=== PATIENT | male | born 1950 | race Caucasian/White ===

== ENCOUNTER 2016-09-21 02:36 | Inpatient (IN) | payer MEDICARE, MEDICAID ==
[~2016-09-21] VITALS: Ht 165.1 cm; Wt 87.0 kg
[~2016-09-21 02:36] MED LIST: ALBU18HF INH; ALPR-475 PO; BUDE10.2 INH; BUPR150T6 PO; HYDR12.53 PO; PROP20TA PO; TAMS-11 PO; TIOT18CA INH; TRAM50TA2 PO
[2016-09-21] MEDS ORDERED: PROPOFOL 100 ML IV PRN ×3 (02:50→11:00)
[2016-09-21] MEDS ORDERED: methylPREDNISolone SOD SUCC 125 MG/2 ML ONE (02:56)
[2016-09-21] MEDS ORDERED: ROCURONIUM 10 MG/ML ONE (02:59)
[2016-09-21] MEDS ORDERED: CODE BLUE RESPONSE XX ONE (02:59)
[2016-09-21] MEDS ORDERED: ETOMIDATE 20 MG/10 ML ONE (02:59)
[2016-09-21] MEDS: MAGNESIUM SULFATE PMX 2GM/50ML 50 ML IV ONE (03:00)
[2016-09-21] MEDS ORDERED: ALBUTEROL 0.5%, 20ML NPPBCONT ONE (03:00)
[2016-09-21] MEDS ORDERED: ETOMIDATE 20 MG/10 ML IV ONE (03:00)
[2016-09-21] MEDS ORDERED: ROCURONIUM 10 MG/ML IVPush ONE (03:00)
[2016-09-21] MEDS ORDERED: FENTANYL PF 100 MCG/2ML IV ONE (03:00)
[2016-09-21] MEDS ORDERED: methylPREDNISolone SOD SUCC 125 MG/2 ML IVP ONE (03:00)
[2016-09-21] MEDS ORDERED: SODIUM CHLORIDE 0.9% ONE (03:06)
[2016-09-21] MEDS ORDERED: MAGNESIUM SULFATE 1 GM/2 ML ONE (03:06)
[2016-09-21 03:19] LABS: ASPARTATE AMINO TRANSFERASE 32 U/L (15-37); BLOOD UREA NITROGEN 13 mg/dL (7-18)
[2016-09-21 03:20] LABS: ABG COLLECTION SITE RIGHT RADIAL; COLLATERAL CIRCULATION TESTING NORMAL
[2016-09-21 03:24] LABS: IS PT STATUS REG ER OR PRE ER? YES
[2016-09-21] MEDS ORDERED: PIPERACILLIN/TAZO/PMX 3.375GM 50 ML IVPB ONE (03:30)
[2016-09-21] MEDS ORDERED: VANCOMYCIN 1,600 MG in SODIUM CHLORIDE 0.9% 250 ML IV ONE (03:30)
[2016-09-21] MEDS ORDERED: VANCOMYCIN PER PHARMACY IV ONE (03:30)
[2016-09-21 03:32] LABS: DIFF TOTAL CELLS COUNTED 100 CELL DIFF
[2016-09-21] MEDS ORDERED: FENTANYL PF 250 MCG in SODIUM CHLORIDE 0.9% 250 ML IV PRN (04:00)
[2016-09-21] MEDS ORDERED: VANCOMYCIN PER PHARMACY MC PRN (04:00)
[2016-09-21] MEDS: PIPERACILLIN/TAZO/PMX 3.375GM 50 ML IV SCH ×4 (04:00→22:01)
[2016-09-21] MEDS ORDERED: ONDANSETRON 2MG/ML, 2ML IVP PRN (04:00)
[2016-09-21] MEDS: methylPREDNISolone SOD SUCC 125 MG/2 ML IVPush SCH ×4 (04:00→22:01)
[2016-09-21 04:10] LABS: VERIFY COUNTS? YES
[2016-09-21] MEDS ORDERED: FENTANYL PF 100 MCG/2ML ONE (04:13)
[2016-09-21] MEDS: SODIUM CHLORIDE 0.9% 1,000 ML IV SCH ×2 (04:25→16:33)
[2016-09-21] MEDS ORDERED: ASPI-496 PO (04:25)
[2016-09-21] MEDS ORDERED: AMLO10TA2 PO (04:25)
[2016-09-21] MEDS ORDERED: PROP20TA PO (04:25)
[2016-09-21] MEDS ORDERED: AMOX875T PO (04:25)
[2016-09-21] MEDS ORDERED: ATOR20TA9 PO (04:25)
[2016-09-21] MEDS ORDERED: CARV3.122 PO (04:25)
[2016-09-21] MEDS ORDERED: MIDAZOLAM 1 MG/ML, 2ML IVPush ONE (04:30)
[2016-09-21 04:37] LABS: ABG COLLECTION SITE RIGHT RADIAL; COLLATERAL CIRCULATION TESTING NORMAL
[2016-09-21] MEDS ORDERED: PIPERACILLIN/TAZO/PMX 3.375GM 50 ML ONE (04:49)
[2016-09-21 04:57] LABS: IS PT STATUS REG ER OR PRE ER? YES
[2016-09-21 05:02] LABS: DAU SCREEN DISCLAIMER
[2016-09-21] MEDS: [UNRECOGNIZED DRUG - OTHER] MC SCH ×4 (07:00→09:52)
[2016-09-21 07:11] LABS: ABG COLLECTION SITE RIGHT RADIAL; COLLATERAL CIRCULATION TESTING NORMAL
[2016-09-21] MEDS ORDERED: PLEASE ENTER HEIGHT AND WEIGHT MC SCH (08:30)
[2016-09-21] MEDS ORDERED: PROPOFOL 100 ML IV ONE (09:58)
[2016-09-21] MEDS ORDERED: VANCOMYCIN 1,400 MG in SODIUM CHLORIDE 0.9% 250 ML IV SCH (10:00)
[2016-09-21] MEDS ORDERED: PHARMACOKINETIC MONITORING MC PRN (10:00)
[2016-09-21] MEDS ORDERED: EPINEPHRINE 1 MG/ML, 1ML ONE (10:02)
[2016-09-21] MEDS ORDERED: PROPOFOL 10 MG/ML, 20ML ONE (10:02)
[2016-09-21] MEDS: FAMOTIDINE 20 MG/2 ML IV SCH ×2 (10:04→21:24)
[2016-09-21] MEDS: ENOXAPARIN 40 MG/0.4 ML SQ SCH (10:04)
[2016-09-21 10:57] LABS: IS PT STATUS REG ER OR PRE ER? NO
[2016-09-21] MEDS: ALBUTEROL/IPRATROPIUM 2.5MG/0.5MG, 3 ML INLINE SCH ×4 (11:15→23:40)
[2016-09-21] MEDS ORDERED: DEXTROSE 50%, 50ML SYRINGE IVPush PRN (14:00)
[2016-09-21] MEDS ORDERED: SENNA/DOCUSATE TABLET NG PRN (14:00)
[2016-09-21] MEDS ORDERED: DEXTROSE 4 GM TAB.CHEW PO PRN (14:00)
[2016-09-21] MEDS ORDERED: LIDOCAINE-MPF 1%, 2ML ENDO PRN (14:00)
[2016-09-21] MEDS ORDERED: SENNOSIDES 8.8 MG/5 ML ORAL SOL NG PRN (14:00)
[2016-09-21] MEDS ORDERED: ALBUTEROL/IPRATROPIUM 2.5MG/0.5MG, 3 ML INLINE SCH (14:00)
[2016-09-21] MEDS ORDERED: GLUCAGON 1 MG IM PRN (14:00)
[2016-09-21] MEDS ORDERED: BISACODYL 10 MG SUPP PR PRN (14:00)
[2016-09-21] MEDS ORDERED: FENTANYL PF 100 MCG/2ML IVPush PRN (14:00)
[2016-09-21] MEDS: PROPOFOL 100 ML IV PRN ×2 (15:44→21:30)
[2016-09-21] MEDS: INSULIN ASPART 100 UNITS/ML, PEN SQ-INSULIN SCH ×2 (16:00→21:00)
[2016-09-21 16:30] LABS: IS PT STATUS REG ER OR PRE ER? NO
[2016-09-21] MEDS: SODIUM CHLORIDE FLUSH 10ML SYR IVF SCH (21:24)
[2016-09-22] MEDS ORDERED: OMNIPAQUE 350 MG/ML, 100ML BOTTLE ONE (01:17)
[2016-09-22] MEDS: PROPOFOL 100 ML IV PRN (01:24)
[2016-09-22] MEDS: ALBUTEROL/IPRATROPIUM 2.5MG/0.5MG, 3 ML INLINE SCH ×2 (02:24→06:30)
[2016-09-22 04:00] VITALS: BP 119/58
[2016-09-22] MEDS: PIPERACILLIN/TAZO/PMX 3.375GM 50 ML IV SCH ×4 (04:00→22:41)
[2016-09-22] MEDS: methylPREDNISolone SOD SUCC 125 MG/2 ML IVPush SCH ×4 (04:00→22:41)
[2016-09-22 04:25] LABS: HEMOGLOBIN 11.2 g/dL (13.7-18.0)
[2016-09-22 04:32] LABS: ABG COLLECTION SITE LEFT RADIAL; COLLATERAL CIRCULATION TESTING NORMAL
[2016-09-22 04:37] LABS: BLOOD UREA NITROGEN 20 mg/dL (7-18)
[2016-09-22 04:40] LABS: ASPARTATE AMINO TRANSFERASE 32 U/L (15-37)
[2016-09-22] MEDS: VANCOMYCIN 1,400 MG in SODIUM CHLORIDE 0.9% 250 ML IV SCH (04:41)
[2016-09-22] MEDS: SODIUM CHLORIDE 0.9% 1,000 ML IV SCH ×2 (04:58→20:49)
[2016-09-22] MEDS: INSULIN ASPART 100 UNITS/ML, PEN SQ-INSULIN SCH ×4 (07:00→20:43)
[2016-09-22] MEDS: ENOXAPARIN 40 MG/0.4 ML SQ SCH (09:51)
[2016-09-22] MEDS: FAMOTIDINE 20 MG/2 ML IV SCH ×2 (09:51→20:49)
[2016-09-22] MEDS: SODIUM CHLORIDE FLUSH 10ML SYR IVF SCH ×2 (09:51→20:43)
[2016-09-22] MEDS: ALBUTEROL/IPRATROPIUM 2.5MG/0.5MG, 3 ML NPPB SCH ×4 (11:00→23:00)
[2016-09-22] MEDS: CARVEDILOL 3.125 MG TABLET PO SCH (17:19)
[2016-09-23] MEDS ORDERED: ALBUTEROL SULFATE 2.5 MG/3 ML ONE (02:46)
[2016-09-23] MEDS ORDERED: IPRATROPIUM 0.5 MG/2.5 ML INHA ONE (02:47)
[2016-09-23] MEDS: ALBUTEROL/IPRATROPIUM 2.5MG/0.5MG, 3 ML NPPB SCH ×6 (03:10→23:06)
[2016-09-23] MEDS: methylPREDNISolone SOD SUCC 125 MG/2 ML IVPush SCH ×4 (04:11→22:50)
[2016-09-23] MEDS: PIPERACILLIN/TAZO/PMX 3.375GM 50 ML IV SCH ×4 (04:11→22:50)
[2016-09-23 04:38] VITALS: BP 122/67
[2016-09-23 04:46] LABS: ABG COLLECTION SITE NOT DOCUMENTED
[2016-09-23 04:47] LABS: HEMOGLOBIN 11.5 g/dL (13.7-18.0)
[2016-09-23] MEDS: VANCOMYCIN 1,400 MG in SODIUM CHLORIDE 0.9% 250 ML IV SCH (04:53)
[2016-09-23 04:55] LABS: BLOOD UREA NITROGEN 26 mg/dL (7-18)
[2016-09-23] MEDS: CARVEDILOL 3.125 MG TABLET PO SCH (06:04)
[2016-09-23] MEDS: INSULIN ASPART 100 UNITS/ML, PEN SQ-INSULIN SCH ×4 (07:00→20:55)
[2016-09-23] MEDS: FAMOTIDINE 20 MG/2 ML IV SCH ×2 (08:46→20:57)
[2016-09-23] MEDS: SODIUM CHLORIDE FLUSH 10ML SYR IVF SCH ×2 (08:46→20:57)
[2016-09-23] MEDS: ENOXAPARIN 40 MG/0.4 ML SQ SCH (08:47)
[2016-09-23] MEDS: FLUTICASONE/VILANTEROL 200-25MCG/INH INH SCH (10:41)
[2016-09-23] MEDS: TAMSULOSIN 0.4 MG CAP.ER.24H PO SCH (10:41)
[2016-09-23] MEDS ORDERED: CARVEDILOL 3.125 MG TABLET PO ONE (11:00)
[2016-09-23] MEDS ORDERED: REGADENOSON 0.4 MG/5 ML SYRINGE ONE (11:12)
[2016-09-23] MEDS: OXYcodone/APAP 7.5/325MG TABLET PO PRN ×2 (17:02→22:50)
[2016-09-23 17:03] VITALS: BP 159/64
[2016-09-23] MEDS: CARVEDILOL 6.25 MG TABLET PO SCH (17:03)
[2016-09-23 18:18] VITALS: BP 164/79
[2016-09-23 19:09] VITALS: BP 156/78
[2016-09-24 01:45] VITALS: BP 150/77
[2016-09-24] MEDS: OXYcodone/APAP 7.5/325MG TABLET PO PRN ×5 (03:07→22:40)
[2016-09-24] MEDS: ALBUTEROL/IPRATROPIUM 2.5MG/0.5MG, 3 ML NPPB SCH ×6 (03:14→22:56)
[2016-09-24 03:45] LABS: HEMOGLOBIN 11.6 g/dL (13.7-18.0)
[2016-09-24 03:49] LABS: ASPARTATE AMINO TRANSFERASE 97 U/L (15-37); BLOOD UREA NITROGEN 34 mg/dL (7-18)
[2016-09-24] MEDS: VANCOMYCIN 1,400 MG in SODIUM CHLORIDE 0.9% 250 ML IV SCH (04:05)
[2016-09-24] MEDS: methylPREDNISolone SOD SUCC 125 MG/2 ML IVPush SCH ×2 (05:46→12:27)
[2016-09-24] MEDS: CARVEDILOL 6.25 MG TABLET PO SCH ×2 (05:46→17:31)
[2016-09-24] MEDS: PIPERACILLIN/TAZO/PMX 3.375GM 50 ML IV SCH ×3 (05:47→18:42)
[2016-09-24] MEDS: INSULIN ASPART 100 UNITS/ML, PEN SQ-INSULIN SCH ×2 (07:00→11:00)
[2016-09-24] MEDS ORDERED: REGADENOSON 0.4 MG/5 ML SYRINGE ONE (08:06)
[2016-09-24] MEDS: FLUTICASONE/VILANTEROL 200-25MCG/INH INH SCH (08:21)
[2016-09-24] MEDS: FAMOTIDINE 20 MG/2 ML IV SCH ×2 (08:22→19:57)
[2016-09-24] MEDS: TAMSULOSIN 0.4 MG CAP.ER.24H PO SCH (08:22)
[2016-09-24] MEDS: SODIUM CHLORIDE FLUSH 10ML SYR IVF SCH ×2 (08:22→19:57)
[2016-09-24 08:24] VITALS: BP 167/80
[2016-09-24] MEDS: ENOXAPARIN 40 MG/0.4 ML SQ SCH (08:24)
[2016-09-24 13:57] VITALS: BP 158/79
[2016-09-24 17:32] VITALS: BP 140/79
[2016-09-24 19:19] VITALS: BP 172/82
[2016-09-24 21:00] VITALS: BP 166/83
[2016-09-24] MEDS ORDERED: LISINOPRIL 20 MG TABLET PO ONE (21:30)
[2016-09-24] MEDS ORDERED: VANCOMYCIN 1,700 MG in SODIUM CHLORIDE 0.9% 250 ML IV SCH (22:00)
[2016-09-25] VITALS (8 sets, daily range): BP systolic 159–191; BP diastolic 76–98
[2016-09-25] MEDS: PIPERACILLIN/TAZO/PMX 3.375GM 50 ML IV SCH ×3 (00:12→11:23)
[2016-09-25] MEDS: OXYcodone/APAP 7.5/325MG TABLET PO PRN ×4 (02:53→18:20)
[2016-09-25] MEDS: CARVEDILOL 6.25 MG TABLET PO SCH ×2 (05:46→16:20)
[2016-09-25 05:49] LABS: HEMOGLOBIN 11.8 g/dL (13.7-18.0)
[2016-09-25 06:11] LABS: BLOOD UREA NITROGEN 30 mg/dL (7-18)
[2016-09-25] MEDS: ALBUTEROL/IPRATROPIUM 2.5MG/0.5MG, 3 ML NPPB SCH ×5 (06:48→22:35)
[2016-09-25] MEDS: ENOXAPARIN 40 MG/0.4 ML SQ SCH (08:42)
[2016-09-25] MEDS: FAMOTIDINE 20 MG/2 ML IV SCH ×2 (08:42→19:57)
[2016-09-25] MEDS: TAMSULOSIN 0.4 MG CAP.ER.24H PO SCH (08:43)
[2016-09-25] MEDS: SODIUM CHLORIDE FLUSH 10ML SYR IVF SCH ×2 (08:44→19:57)
[2016-09-25] MEDS: FLUTICASONE/VILANTEROL 200-25MCG/INH INH SCH (08:44)
[2016-09-25] MEDS ORDERED: LISINOPRIL 20 MG TABLET PO SCH (12:00)
[2016-09-25] MEDS ORDERED: LISINOPRIL 20 MG TABLET PO ONE (18:30)
[2016-09-26] VITALS (7 sets, daily range): BP systolic 137–188; BP diastolic 68–97
[2016-09-26] MEDS: OXYcodone/APAP 7.5/325MG TABLET PO PRN ×4 (01:00→20:11)
[2016-09-26] MEDS: ALBUTEROL/IPRATROPIUM 2.5MG/0.5MG, 3 ML NPPB SCH ×5 (02:41→20:00)
[2016-09-26 05:23] LABS: HEMOGLOBIN 12.4 g/dL (13.7-18.0)
[2016-09-26 05:32] LABS: BLOOD UREA NITROGEN 22 mg/dL (7-18)
[2016-09-26] MEDS: CARVEDILOL 6.25 MG TABLET PO SCH ×2 (05:54→17:05)
[2016-09-26 07:41] LABS: IS PT STATUS REG ER OR PRE ER? NO
[2016-09-26] MEDS: FLUTICASONE/VILANTEROL 200-25MCG/INH INH SCH (09:18)
[2016-09-26] MEDS: LISINOPRIL 20 MG TABLET PO SCH (09:21)
[2016-09-26] MEDS: SODIUM CHLORIDE FLUSH 10ML SYR IVF SCH ×2 (09:21→19:59)
[2016-09-26] MEDS: ENOXAPARIN 40 MG/0.4 ML SQ SCH (09:21)
[2016-09-26] MEDS: FAMOTIDINE 20 MG/2 ML IV SCH ×2 (09:21→19:59)
[2016-09-26] MEDS: TAMSULOSIN 0.4 MG CAP.ER.24H PO SCH (09:21)
[2016-09-26 14:54] LABS: IS PT STATUS REG ER OR PRE ER? NO
[2016-09-26] MEDS: ENALAPRILAT 1.25 MG/ML, 2ML IV PRN (15:43)
[2016-09-27] VITALS (7 sets, daily range): BP systolic 110–179; BP diastolic 68–85
[2016-09-27] MEDS: ALBUTEROL/IPRATROPIUM 2.5MG/0.5MG, 3 ML NPPB PRN ×2 (00:57→05:00)
[2016-09-27] MEDS: OXYcodone/APAP 7.5/325MG TABLET PO PRN ×4 (02:05→23:01)
[2016-09-27] MEDS: CARVEDILOL 6.25 MG TABLET PO SCH ×2 (05:46→17:53)
[2016-09-27 06:01] LABS: HEMOGLOBIN 12.3 g/dL (13.7-18.0)
[2016-09-27 06:03] LABS: ABG COLLECTION SITE RIGHT RADIAL; COLLATERAL CIRCULATION TESTING NORMAL
[2016-09-27 06:10] LABS: BLOOD UREA NITROGEN 16 mg/dL (7-18)
[2016-09-27] MEDS: ALBUTEROL/IPRATROPIUM 2.5MG/0.5MG, 3 ML NPPB SCH ×5 (07:26→23:59)
[2016-09-27] MEDS: LISINOPRIL 20 MG TABLET PO SCH (08:29)
[2016-09-27] MEDS: TAMSULOSIN 0.4 MG CAP.ER.24H PO SCH (08:29)
[2016-09-27] MEDS: FLUTICASONE/VILANTEROL 200-25MCG/INH INH SCH (08:29)
[2016-09-27] MEDS: ENOXAPARIN 40 MG/0.4 ML SQ SCH (08:30)
[2016-09-27] MEDS: FAMOTIDINE 20 MG/2 ML IV SCH ×2 (08:30→19:47)
[2016-09-27] MEDS: SODIUM CHLORIDE FLUSH 10ML SYR IVF SCH ×2 (08:33→21:00)
[2016-09-27] MEDS: ENALAPRILAT 1.25 MG/ML, 2ML IV PRN (12:43)
[2016-09-28 01:12] VITALS: BP 143/80
[2016-09-28 05:37] VITALS: BP 145/76
[2016-09-28] MEDS: CARVEDILOL 6.25 MG TABLET PO SCH ×2 (06:16→18:20)
[2016-09-28 06:21] LABS: HEMOGLOBIN 12.5 g/dL (13.7-18.0)
[2016-09-28] MEDS: OXYcodone/APAP 7.5/325MG TABLET PO PRN ×4 (06:22→23:16)
[2016-09-28 06:38] LABS: BLOOD UREA NITROGEN 20 mg/dL (7-18)
[2016-09-28] MEDS: ALBUTEROL/IPRATROPIUM 2.5MG/0.5MG, 3 ML NPPB SCH ×5 (07:25→23:05)
[2016-09-28 07:45] VITALS: BP 145/74
[2016-09-28] MEDS: ENOXAPARIN 40 MG/0.4 ML SQ SCH (09:36)
[2016-09-28] MEDS: LISINOPRIL 20 MG TABLET PO SCH (09:37)
[2016-09-28] MEDS: TAMSULOSIN 0.4 MG CAP.ER.24H PO SCH (09:37)
[2016-09-28] MEDS: FAMOTIDINE 20 MG/2 ML IV SCH ×2 (09:37→20:07)
[2016-09-28] MEDS: FLUTICASONE/VILANTEROL 200-25MCG/INH INH SCH (09:37)
[2016-09-28] MEDS: SODIUM CHLORIDE FLUSH 10ML SYR IVF SCH ×2 (09:38→20:07)
[2016-09-28 13:47] VITALS: BP 149/72
[2016-09-28 18:33] VITALS: BP 157/75
[2016-09-29 00:46] VITALS: BP 133/75
[2016-09-29 05:51] LABS: BLOOD UREA NITROGEN 16 mg/dL (7-18)
[2016-09-29 05:55] LABS: HEMOGLOBIN 12.3 g/dL (13.7-18.0)
[2016-09-29 06:23] VITALS: BP 152/81
[2016-09-29] MEDS: CARVEDILOL 6.25 MG TABLET PO SCH ×2 (06:24→17:16)
[2016-09-29] MEDS: ALBUTEROL/IPRATROPIUM 2.5MG/0.5MG, 3 ML NPPB SCH ×5 (07:00→23:45)
[2016-09-29 07:16] VITALS: BP 129/67
[2016-09-29] MEDS: OXYcodone/APAP 7.5/325MG TABLET PO PRN ×3 (08:21→21:13)
[2016-09-29] MEDS: ENOXAPARIN 40 MG/0.4 ML SQ SCH (08:21)
[2016-09-29] MEDS: FAMOTIDINE 20 MG/2 ML IV SCH ×2 (08:21→21:13)
[2016-09-29] MEDS: TAMSULOSIN 0.4 MG CAP.ER.24H PO SCH (08:21)
[2016-09-29] MEDS: FLUTICASONE/VILANTEROL 200-25MCG/INH INH SCH (08:21)
[2016-09-29] MEDS: LISINOPRIL 20 MG TABLET PO SCH (08:21)
[2016-09-29] MEDS: SODIUM CHLORIDE FLUSH 10ML SYR IVF SCH ×2 (08:22→21:13)
[2016-09-29 14:07] VITALS: BP 138/78
[2016-09-29 20:55] VITALS: BP 148/81
[2016-09-30] MEDS: OXYcodone/APAP 7.5/325MG TABLET PO PRN ×5 (01:17→22:26)
[2016-09-30 01:21] VITALS: BP 143/81
[2016-09-30 05:06] VITALS: BP 155/79
[2016-09-30] MEDS: CARVEDILOL 6.25 MG TABLET PO SCH ×2 (05:07→17:18)
[2016-09-30] MEDS: ALBUTEROL/IPRATROPIUM 2.5MG/0.5MG, 3 ML NPPB SCH ×4 (06:40→18:31)
[2016-09-30 06:45] LABS: BLOOD UREA NITROGEN 15 mg/dL (7-18)
[2016-09-30] MEDS: LISINOPRIL 20 MG TABLET PO SCH (07:37)
[2016-09-30] MEDS: TAMSULOSIN 0.4 MG CAP.ER.24H PO SCH (07:38)
[2016-09-30] MEDS: FAMOTIDINE 20 MG/2 ML IV SCH ×2 (07:38→22:27)
[2016-09-30] MEDS: ENOXAPARIN 40 MG/0.4 ML SQ SCH (07:38)
[2016-09-30] MEDS: FLUTICASONE/VILANTEROL 200-25MCG/INH INH SCH (07:38)
[2016-09-30] MEDS: SODIUM CHLORIDE FLUSH 10ML SYR IVF SCH ×2 (07:39→22:26)
[2016-09-30 07:51] LABS: HEMOGLOBIN 13.1 g/dL (13.7-18.0)
[2016-09-30 08:10] VITALS: BP 154/72
[2016-09-30] MEDS: NYSTATIN 500,000 UNITS/5 ML UDC PO SCH ×2 (15:13→22:26)
[2016-09-30 16:22] VITALS: BP 148/83
[2016-09-30 21:10] VITALS: BP 144/84
[2016-09-30] MEDS: ALBUTEROL/IPRATROPIUM 2.5MG/0.5MG, 3 ML NPPB PRN (22:42)
[2016-10-01] MEDS: ALBUTEROL/IPRATROPIUM 2.5MG/0.5MG, 3 ML NPPB PRN (03:25)
[2016-10-01 03:50] VITALS: BP 133/77
[2016-10-01] MEDS: OXYcodone/APAP 7.5/325MG TABLET PO PRN ×4 (04:39→21:05)
[2016-10-01] MEDS: CARVEDILOL 6.25 MG TABLET PO SCH ×2 (05:40→17:40)
[2016-10-01] MEDS: NYSTATIN 500,000 UNITS/5 ML UDC PO SCH ×4 (05:40→20:13)
[2016-10-01 06:36] LABS: HEMOGLOBIN 12.7 g/dL (13.7-18.0)
[2016-10-01 06:40] VITALS: BP 119/75
[2016-10-01 06:41] LABS: BLOOD UREA NITROGEN 22 mg/dL (7-18)
[2016-10-01] MEDS: ALBUTEROL/IPRATROPIUM 2.5MG/0.5MG, 3 ML NPPB SCH ×4 (07:00→19:51)
[2016-10-01] MEDS: SODIUM CHLORIDE FLUSH 10ML SYR IVF SCH ×2 (07:00→20:13)
[2016-10-01] MEDS: FLUTICASONE/VILANTEROL 200-25MCG/INH INH SCH (09:13)
[2016-10-01] MEDS: TAMSULOSIN 0.4 MG CAP.ER.24H PO SCH (09:14)
[2016-10-01] MEDS: ENOXAPARIN 40 MG/0.4 ML SQ SCH (09:15)
[2016-10-01] MEDS: LISINOPRIL 20 MG TABLET PO SCH (09:15)
[2016-10-01] MEDS: FAMOTIDINE 20 MG/2 ML IV SCH ×2 (09:15→20:13)
[2016-10-01 14:14] VITALS: BP 144/81
[2016-10-01] MEDS: LACTULOSE 20 GM/30 ML UDC NG PRN (17:41)
[2016-10-01 18:43] VITALS: BP 119/75
[2016-10-02] MEDS: ALBUTEROL/IPRATROPIUM 2.5MG/0.5MG, 3 ML NPPB SCH ×5 (00:06→19:11)
[2016-10-02] MEDS: OXYcodone/APAP 7.5/325MG TABLET PO PRN ×5 (01:21→20:18)
[2016-10-02 01:58] VITALS: BP 165/80
[2016-10-02] MEDS: CARVEDILOL 6.25 MG TABLET PO SCH ×2 (05:14→18:26)
[2016-10-02] MEDS: NYSTATIN 500,000 UNITS/5 ML UDC PO SCH ×4 (05:54→20:18)
[2016-10-02 06:42] LABS: BLOOD UREA NITROGEN 25 mg/dL (7-18)
[2016-10-02 07:10] VITALS: BP 154/80
[2016-10-02] MEDS: LISINOPRIL 20 MG TABLET PO SCH (08:35)
[2016-10-02] MEDS: TAMSULOSIN 0.4 MG CAP.ER.24H PO SCH (08:35)
[2016-10-02] MEDS: ENOXAPARIN 40 MG/0.4 ML SQ SCH (08:36)
[2016-10-02] MEDS: FAMOTIDINE 20 MG/2 ML IV SCH ×2 (08:36→20:18)
[2016-10-02] MEDS: FLUTICASONE/VILANTEROL 200-25MCG/INH INH SCH (08:36)
[2016-10-02] MEDS: SODIUM CHLORIDE FLUSH 10ML SYR IVF SCH ×2 (08:36→20:18)
[2016-10-02 13:15] VITALS: BP 155/82
[2016-10-02 18:55] VITALS: BP 145/80
[2016-10-02] MEDS: ALBUTEROL/IPRATROPIUM 2.5MG/0.5MG, 3 ML NPPB PRN (23:18)
[2016-10-03] MEDS: OXYcodone/APAP 7.5/325MG TABLET PO PRN ×4 (01:52→20:25)
[2016-10-03 01:54] VITALS: BP 147/74
[2016-10-03 05:41] LABS: HEMOGLOBIN 13.4 g/dL (13.7-18.0)
[2016-10-03] MEDS: CARVEDILOL 6.25 MG TABLET PO SCH ×2 (05:45→16:16)
[2016-10-03] MEDS: NYSTATIN 500,000 UNITS/5 ML UDC PO SCH ×4 (05:45→20:25)
[2016-10-03 05:50] LABS: BLOOD UREA NITROGEN 22 mg/dL (7-18)
[2016-10-03 06:27] VITALS: BP 159/80
[2016-10-03] MEDS: ALBUTEROL/IPRATROPIUM 2.5MG/0.5MG, 3 ML NPPB SCH ×3 (07:10→22:18)
[2016-10-03] MEDS: ENOXAPARIN 40 MG/0.4 ML SQ SCH (09:15)
[2016-10-03] MEDS: FLUTICASONE/VILANTEROL 200-25MCG/INH INH SCH (09:15)
[2016-10-03] MEDS: SODIUM CHLORIDE FLUSH 10ML SYR IVF SCH ×2 (09:15→20:26)
[2016-10-03] MEDS: TAMSULOSIN 0.4 MG CAP.ER.24H PO SCH (09:16)
[2016-10-03] MEDS: FAMOTIDINE 20 MG/2 ML IV SCH (09:16)
[2016-10-03] MEDS: LISINOPRIL 20 MG TABLET PO SCH (09:16)
[2016-10-03] MEDS: LACTULOSE 20 GM/30 ML UDC NG PRN (09:17)
[2016-10-03 13:36] VITALS: BP 113/61
[2016-10-03 16:14] VITALS: BP 135/65
[2016-10-03 19:20] VITALS: BP 151/74
[2016-10-03] MEDS: FAMOTIDINE 20 MG TABLET PO SCH (20:25)
[2016-10-04 01:13] VITALS: BP 136/85
[2016-10-04 01:50] VITALS: BP 137/83
[2016-10-04] MEDS: OXYcodone/APAP 7.5/325MG TABLET PO PRN ×4 (02:12→22:02)
[2016-10-04] MEDS: NYSTATIN 500,000 UNITS/5 ML UDC PO SCH ×4 (06:02→20:05)
[2016-10-04] MEDS: CARVEDILOL 6.25 MG TABLET PO SCH ×2 (06:02→17:13)
[2016-10-04 06:10] LABS: HEMOGLOBIN 14.1 g/dL (13.7-18.0)
[2016-10-04 06:19] LABS: BLOOD UREA NITROGEN 32 mg/dL (7-18)
[2016-10-04 06:36] VITALS: BP 145/82
[2016-10-04] MEDS: ALBUTEROL/IPRATROPIUM 2.5MG/0.5MG, 3 ML NPPB SCH ×4 (07:00→19:48)
[2016-10-04] MEDS: FLUTICASONE/VILANTEROL 200-25MCG/INH INH SCH (10:16)
[2016-10-04] MEDS: ENOXAPARIN 40 MG/0.4 ML SQ SCH (10:16)
[2016-10-04] MEDS: TAMSULOSIN 0.4 MG CAP.ER.24H PO SCH (10:16)
[2016-10-04] MEDS: LISINOPRIL 20 MG TABLET PO SCH (10:16)
[2016-10-04] MEDS: FAMOTIDINE 20 MG TABLET PO SCH ×2 (10:16→20:05)
[2016-10-04] MEDS: SODIUM CHLORIDE FLUSH 10ML SYR IVF SCH ×2 (10:17→20:05)
[2016-10-04 13:07] VITALS: BP 94/62
[2016-10-04 20:45] VITALS: BP 146/74
[2016-10-05 01:50] VITALS: BP 137/83
[2016-10-05] MEDS: OXYcodone/APAP 7.5/325MG TABLET PO PRN ×4 (02:11→22:13)
[2016-10-05] MEDS: NYSTATIN 500,000 UNITS/5 ML UDC PO SCH ×5 (06:05→19:58)
[2016-10-05] MEDS: CARVEDILOL 6.25 MG TABLET PO SCH ×2 (06:06→18:05)
[2016-10-05 06:07] LABS: BLOOD UREA NITROGEN 31 mg/dL (7-18)
[2016-10-05 06:40] VITALS: BP 131/99
[2016-10-05] MEDS: ALBUTEROL/IPRATROPIUM 2.5MG/0.5MG, 3 ML NPPB SCH ×4 (08:00→20:00)
[2016-10-05] MEDS: FAMOTIDINE 20 MG TABLET PO SCH ×2 (08:36→19:56)
[2016-10-05] MEDS: FLUTICASONE/VILANTEROL 200-25MCG/INH INH SCH (08:36)
[2016-10-05] MEDS: TAMSULOSIN 0.4 MG CAP.ER.24H PO SCH (08:37)
[2016-10-05] MEDS: LISINOPRIL 20 MG TABLET PO SCH (08:37)
[2016-10-05] MEDS: ENOXAPARIN 40 MG/0.4 ML SQ SCH (08:37)
[2016-10-05] MEDS: SODIUM CHLORIDE FLUSH 10ML SYR IVF SCH ×2 (08:39→19:56)
[2016-10-05 14:04] VITALS: BP 117/74
[2016-10-05 20:55] VITALS: BP 102/65
[2016-10-06 03:00] VITALS: BP 139/62
[2016-10-06] MEDS: CARVEDILOL 6.25 MG TABLET PO SCH ×2 (05:14→18:27)
[2016-10-06] MEDS: NYSTATIN 500,000 UNITS/5 ML UDC PO SCH ×3 (05:14→16:00)
[2016-10-06] MEDS: OXYcodone/APAP 7.5/325MG TABLET PO PRN ×3 (05:15→18:25)
[2016-10-06 05:42] LABS: BLOOD UREA NITROGEN 30 mg/dL (7-18)
[2016-10-06] MEDS: ALBUTEROL/IPRATROPIUM 2.5MG/0.5MG, 3 ML NPPB SCH ×4 (07:00→20:30)
[2016-10-06 07:19] VITALS: BP 126/70
[2016-10-06] MEDS: FLUTICASONE/VILANTEROL 200-25MCG/INH INH SCH (08:49)
[2016-10-06] MEDS: LISINOPRIL 20 MG TABLET PO SCH (08:51)
[2016-10-06] MEDS: TAMSULOSIN 0.4 MG CAP.ER.24H PO SCH (08:52)
[2016-10-06] MEDS: SODIUM CHLORIDE FLUSH 10ML SYR IVF SCH (08:52)
[2016-10-06] MEDS: FAMOTIDINE 20 MG TABLET PO SCH (08:52)
[2016-10-06] MEDS: ENOXAPARIN 40 MG/0.4 ML SQ SCH (08:52)
[2016-10-06 13:32] VITALS: BP 127/75
[2016-10-06] MEDS ORDERED: AZITHROMYCIN 500 MG TABLET PO ONE (14:00)
[2016-10-06] MEDS ORDERED: LISI-170 PO (14:44)
[2016-10-06] MEDS ORDERED: CARV6.2512 PO (14:44)
[2016-10-06] MEDS ORDERED: AZIT250T PO (14:45)
[2016-10-06] MEDS ORDERED: ASPI-496 PO (15:31)
[2016-10-06] MEDS ORDERED: OXYC-302 PO (17:11)
[2016-10-06 20:40] VITALS: BP 92/59
== END 2016-10-06 21:26 | disposition home health service (06) | DRG 208 ==
LOC: EDBD 02:36 → SUATTDRO 03:46 → ED 04:12 → MERGE 04:12 → EDIP 04:20 → CCU 05:55 → 5SO 09-23 18:11
PROVIDERS: ADMIT Internal Medicine; ATTEND Internal Medicine
PROC: 5A12012 Performance of Cardiac Output, Single, Manual (ICD-10-PCS; principal; 2016-09-21)
PROC: 5A1935Z Respiratory Ventilation, Less than 24 Consecutive Hours (ICD-10-PCS; 2016-09-21)
PROC: 0BH17EZ Insertion of Endotracheal Airway into Trachea, Via Natural or Artificial Opening (ICD-10-PCS; 2016-09-21)
PROC: 0T9B70Z Drainage of Bladder with Drainage Device, Via Natural or Artificial Opening (ICD-10-PCS; 2016-09-21)
DX: J96.21 Acute and chronic respiratory failure with hypoxia (principal); I21.4 Non-ST elevation (NSTEMI) myocardial infarction; G93.41 Metabolic encephalopathy; I46.9 Cardiac arrest, cause unspecified; N17.0 Acute kidney failure with tubular necrosis; J18.9 Pneumonia, unspecified organism; Z99.11 Dependence on respirator [ventilator] status; E87.2 Acidosis; I47.2 Ventricular tachycardia; J44.1 Chronic obstructive pulmonary disease with (acute) exacerbation; J96.22 Acute and chronic respiratory failure with hypercapnia; D72.829 Elevated white blood cell count, unspecified; F17.200 Nicotine dependence, unspecified, uncomplicated; I07.1 Rheumatic tricuspid insufficiency; I25.10 Atherosclerotic heart disease of native coronary artery without angina pectoris; I27.2 Other secondary pulmonary hypertension; I34.0 Nonrheumatic mitral (valve) insufficiency; I73.9 Peripheral vascular disease, unspecified; Z99.81 Dependence on supplemental oxygen; Z71.6 Tobacco abuse counseling
CPT/HCPCS: 36415; 36600; 70450; 71010; 71275; 78452; 80047; 80048; 80053; 80202; 80307; 81001; 82803; 82962; 83605; 83735; 83880; 84100; 84443; 84478; 84484; 85025; 85610; 85730; 87040; 87070; 87081; 87205; 87324; 92950; 93005; 93017; 93306; 93970; 94002; 94003; 94640; 96365; 96366; 96368; 96375; J0171; J1650; J1815; J2543; J2704; J2785; J3010; J3370; J3475; J3490; J7620; Q9967; A9502; C9898; J2930; J7030; J7050; J7512; S0028

== ENCOUNTER → 2016-12-12 | Outpatient (CLI) | payer MEDICARE, MEDICAID ==
[~2016-12-12] MED LIST changes: +ACID1TAB7 PO; +ALPR1TAB2 PO; +AMLO10TA2 PO; +AMOX875T PO; +ASCO500C2 PO; +ASPI-496 PO; +ATOR20TA9 PO; +AZIT250T PO; +CALC-112 PO; +CARV3.1212 PO; +CARV3.122 PO; +CARV6.2512 PO; +CEFD300C37 PO; +ENOX40SY4 SQ; +FOLI-17 PO; +FURO10VI37 IV; +FURO20TA3 PO; +FURO40TA6 PO; +GUAI400T26 PO; +ISOS60TA36 PO; +LACT1CAP24 PO; +LISI-170 PO; +Lactulose NG; +MULT-115 PO; +OXYC-302 PO; +OXYC5CAP4 PO; +PIPE3.373 IV; +POTA20TA89 PO; +PRED10TA PO
== END | disposition home or self-care (01) ==
LOC: RAD 08:44
PROVIDERS: ATTEND Physical Medicine & Rehabilitation
DX: Z51.89 Encounter for other specified aftercare (principal); R13.10 Dysphagia, unspecified
CPT/HCPCS: 74230

== ENCOUNTER → 2016-12-16 | Outpatient (CLI) | payer MEDICARE, MEDICAID | END | disposition home or self-care (01) | LOC: EDSTATUS 14:00 → RAD 14:06 | PROVIDERS: ATTEND Physical Medicine & Rehabilitation | DX: R13.10 Dysphagia, unspecified (principal) ==